=== PATIENT | female | born 1955 | race Caucasian/White ===

== ENCOUNTER 2024-10-09 21:52 | Emergency (ER) | payer MEDICARE, OTHER ==
[~2024-10-09] VITALS: Ht 157.5 cm; Wt 100.2 kg
[~2024-10-09 21:52] MED LIST: ASPI-1265 PO; ATOR20TA66 PO; LEVO100T9 PO; PRAM0.253 PO
[2024-10-09 21:57] VITALS: BP 120/67; PULSE 91; RESP 18; O2SAT 99
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
[2024-10-09] MEDS: LIDOcaine 1% W/epiNEPHrine 1:200,000 10ml vial IJ STA (22:49)
[2024-10-09] MEDS: LIDOcaine 1% W/epiNEPHrine 1:100,000 20ml vial SQ ONE (22:56)
[2024-10-09] MEDS: TETanus/Pertussis (Acell)/Diphther VAC/PF (Tdap-Adult) 0.5ml syringe IMVAC ONE (23:10)
[2024-10-09 23:55] VITALS: TEMP 97
== END 2024-10-09 23:57 | disposition home or self-care (01) ==
LOC: ER 21:53
DX: S81.812A Laceration without foreign body, left lower leg, initial encounter (principal); E03.9 Hypothyroidism, unspecified; Z86.73 Personal history of transient ischemic attack (TIA), and cerebral infarction without residual deficits; Z79.82 Long term (current) use of aspirin; W55.32XA Struck by other hoof stock, initial encounter; Y93.89 Activity, other specified; Y92.89 Other specified places as the place of occurrence of the external cause; Y99.8 Other external cause status
CPT/HCPCS: 12001; 90715; 99283; A6258; A6402; A6446; G0008; Z7610; 90471; A6449

== ENCOUNTER 2024-10-19 10:04 | Emergency (ER) | payer BC ==
[~2024-10-19] VITALS: Ht 157.5 cm; Wt 90.9 kg
[2024-10-19 10:10] VITALS: BP 149/88; PULSE 82; RESP 18; TEMP 97.9; O2SAT 99
[2024-10-19] MEDS ORDERED: DOXY100C76 PO (10:36)
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
== END 2024-10-19 10:58 | disposition home or self-care (01) ==
LOC: ER 10:04
DX: S81.812D Laceration without foreign body, left lower leg, subsequent encounter (principal); L03.116 Cellulitis of left lower limb; E03.9 Hypothyroidism, unspecified; Z86.73 Personal history of transient ischemic attack (TIA), and cerebral infarction without residual deficits; X58.XXXD Exposure to other specified factors, subsequent encounter
CPT/HCPCS: 99283; J7030